=== PATIENT | male | born 2000 | race Caucasian/White ===

== ENCOUNTER 2023-08-30 21:02 | Outpatient (OUT) | payer MEDICARE, SELFPAY | END 2023-08-30 21:03 | disposition home or self-care (01) | LOC: SLEEP 21:02 | PROVIDERS: PCP Family Medicine; Visit Provider Family Medicine | DX: G47.33 Obstructive sleep apnea (adult) (pediatric) (principal) | CPT/HCPCS: 95810 ==

== ENCOUNTER 2024-01-12 14:31 | Outpatient (OUT) | payer MEDICARE, OTHER, SELFPAY ==
--- NOTE | 2024-01-12 14:40 | US_ITS ---
[address] [address] Patient Name: SCOTT PANCHAL MRN: [id number] date: 2000 Sex: M Assigned Patient Location: US Current Patient Location: Accession/Order Number: [id number] Exam Date: 01/12/2024 15:07 Report Date: 01/16/2024 07:32 At the request of: CYNDY MACIAS Procedure: US scrotum EXAMINATION: US scrotum HISTORY: Scrotal Edema COMPARISON: No relevant comparison available. TECHNIQUE: High-resolution sonographic imaging of the scrotum and contents was performed. FINDINGS: The right testicle is normal in size, contour and homogeneous echotexture measuring 4.3 x 2.1 x 2.7 cm. Normal color Doppler flow. The right epididymis is normal. No right hydrocele. There is a heterogeneous area of soft tissue with some flow voids in the intratesticular region adjacent to the right testicle. The left testicle is normal in size, contour and homogeneous echotexture measuring 4.0 x 1.9 x 2.8 cm. Normal color Doppler flow. The left epididymis is normal. No left hydrocele. Small left varicocele US/US scrotum IMPRESSION: Heterogeneous soft tissue between the testicles measuring 2.2 x 1.2 cm likely arising from the right hemiscrotum, nonspecific. This could represent a varicocele Small left varicocele Electronically authenticated by: SAMEER CARTAGENA Date: 01/16/2024 07:32
== END 2024-01-12 14:32 | disposition home or self-care (01) ==
LOC: US 14:34
PROVIDERS: PCP Family Medicine; Visit Provider Family Medicine
DX: N50.89 Other specified disorders of the male genital organs (principal); I86.1 Scrotal varices
CPT/HCPCS: 76870